=== PATIENT | female | born 1940 | race Caucasian/White ===

== ENCOUNTER 2023-06-10 10:44 | Inpatient (IN) ==
[2023-06-10 12:13] LABS: Hematocrit 41.2 % (35-45); Hemoglobin 14.8 g/dL (11.5-14.3); Mean Corpuscular Hemoglobin 35.8 pg (27-33); Mean Corpuscular Hgb Conc 35.9 g/dL (31-36); Mean Corpuscular Volume 99.6 fL (80-97); Mean Platelet Volume 9.9 fL (7.5-11.2); Platelet Count 246 10^3/uL (150-450); Red Blood Count 4.14 10^6/uL (3.63-4.92); Red Cell Distribution Width 15.8 % (12-17)
[2023-06-10 12:45] LABS: Anion Gap 9 mmol/L (2-16); Blood Urea Nitrogen 19 mg/dL (6-24); CO2 Carbon Dioxide 23 mmol/L (22-32); Calcium 8.9 mg/dL (8.6-10.3); Chloride 98 mmol/L (101-111); Creatinine, Serum 1.29 mg/dL (0.51-0.95); Glucose 98 mg/dL (70-100); Sodium 130 mmol/L (135-145); eGFR CKD-EPI 40.7 (>60)
[2023-06-10 12:46] LABS: ALT 79 U/L (7-52)
[2023-06-10 12:47] LABS: Albumin 3.1 g/dL (3.2-5.2); Albumin/Globulin Ratio 1.3 (1-3); Globulin 2.4 g/dL (2-4); Total Protein 5.5 g/dL (6.4-8.9)
[2023-06-10 12:48] LABS: Alkaline Phosphatase 1577 U/L (35-149); Direct Bilirubin 15.2 mg/dL (0.03-0.18); Indirect Bilirubin 21.1 mg/dL (0.3-1.0); Total Bilirubin 36.3 mg/dL (0.2-1.0)
[2023-06-10] MEDS ORDERED: Iodixanol (CONTRAST) 320 MG/ML 100 ML SDV IV ONE (13:32)
[2023-06-10 14:09] LABS: ABS Lymphocytes 0.6 10^3/ul (1.0-4.8); ABS Monocytes 0.3 10^3/ul (0.0-0.9); ABS Neutrophils 10.1 10^3/ul (1.5-7.6); RBC Morphology Normal (Normal)
[2023-06-10] MEDS ORDERED: Polyethylene Glycol 3350 17 GM PACKET PO PRN (17:40)
[2023-06-10] MEDS ORDERED: Ondansetron 4 mg VIAL 2 MG/ML 2 ml VIAL IV PRN (17:40)
[2023-06-10] MEDS ORDERED: Magnesium Hydroxide LIQ 30 ML UDC PO PRN (17:40)
[2023-06-10] MEDS ORDERED: Senna TAB 8.6 mg TAB PO PRN (17:40)
[2023-06-10] MEDS ORDERED: Al Hydrox/Mg Hydrox/Simet LIQ 30 ML UDC PO PRN (17:40)
[2023-06-10] MEDS ORDERED: Morphine 2 MG/ML SYRINGE IV PRN ×2 (17:58)
[2023-06-12 08:24] VITALS: BP 114/48
== END 2023-06-13 12:30 | disposition hospice, inpatient (51) | DRG 951 ==
LOC: ED 10:44 → EDHOLD 17:40 → SUATTDRO 17:40 → MEDTELE 17:40
PROVIDERS: ADMIT Internal Medicine; ATTEND Hospitalist